=== PATIENT | female | born 1980 | race Caucasian/White ===

== ENCOUNTER 2017-04-16 14:30 | Emergency (ER) | payer OTHER ==
[~2017-04-16] VITALS: Ht 170.2 cm; Wt 73.0 kg
[~2017-04-16 14:30] MED LIST: BACL1TAB PO; CYPR4TAB31 PO; MAGN1TAB19 PO; ONDA4TAB65 PO; RIBO1TAB PO; TIZA1CAP2 PO
[2017-04-16 14:38] VITALS: TEMP 37.1; Ht 170.2 cm; Wt 73.0 kg
[2017-04-16] MEDS ORDERED: SODIUM CHLORIDE 0.9% 1000ML 1,000 ML IV STA (15:23)
[2017-04-16] MEDS ORDERED: PROCHLORPERAZINE 5 MG/ML 2 ML VIAL IV STA (15:23)
[2017-04-16] MEDS ORDERED: DiphenhydrAMINE HCL 50 MG/ML VIAL IV STA (15:23)
[2017-04-16] MEDS ORDERED: DEXAMETHASONE SOD INJ 10 MG/ML VIAL IV ONE (15:30)
[2017-04-16] MEDS ORDERED: PROCHLORPERAZINE INJ 10 MG in SYRINGE 8 ML IV SCH (15:40)
[2017-04-16] MEDS ORDERED: OXYC-57 PO (15:57)
[2017-04-16] MEDS ORDERED: ESOM20CA PO (15:57)
[2017-04-16] MEDS ORDERED: BCPILLS PO (15:57)
--- NOTE | 2017-04-16 16:08 | EMERGENCY ROOM VISIT NOTE ---
History First contact with patient: 14:47 Chief Complaint: HEADACHE Stated Complaint: HEADACHE History of Present Illness The patient is a 36 year old female with reported 20 yr hx of recurrent BURNETT's attributed to migraine, with previous extensive Neurological workup by multiple Neurologists who presents to the Emergency Room with complaints of BURNETT x 2-3 days. Patient has reportedly tried and failed treatment with multiple BURNETT and migraine medications and is currently on Oxycodone prescribed by Pain Clinic in [facility] Dr. Tubbs. She also reports N/V, facial swelling. and chronic chest discomfort for which she has had previous negative EKG's. She denies any numbness, weakness, or tingling, Review of Systems Pt denies, fevers, shortness of breath, nausea, vomiting, diarrhea, pain with urination, and melena. Refer to HPI for rest of ROS Past Medical/Surgical History Medical Problems: (1) Migraine Family History FHx: cardiovascular disease Social History Smoking Status: Never Smoker Alcohol Use: none Drug Use: none Marital Status: Housing Status: lives with family Occupation Status: employed Current/Historical Medications Scheduled Control Pills ( Control Pills), 1 TAB PO DAILY Esomeprazole Magnesium (Nexium), 20 MG PO DAILY Magnesium Oxide (Mg Supplement (Magnesium Oxide), 400 MG PO BID Riboflavin (B-2), 400 MG PO QAM Scheduled PRN Oxycodone/Acetaminophen 5MG/325MG (Percocet 5MG/325MG), 1 TABLET PO Q6H PRN for Pain Physical Exam Vital Signs Date Time Temp Pulse Resp B/P (MAP) Pulse Ox O2 Delivery O2 Flow Rate FiO2 04/16/17 17:25 66 18 125/77 94 04/16/17 16:05 87 18 118/82 97 Room Air 04/16/17 14:38 37.1 76 18 130/92 99 Room Air Physical Exam GENERAL: alert, no distress, non-toxic EYE EXAM: normal conjunctiva, PERRL and EOM's grossly intact OROPHARYNX: no exudate, no erythema, lips, buccal mucosa, and tongue normal and mucous membranes are moist NECK: supple, no nuchal rigidity, no adenopathy, non-tender LUNGS: Clear to auscultation. Normal chest wall mechanics HEART: no murmurs, S1 normal and S2 normal ABDOMEN: abdomen soft, non-tender, normo-active bowel sounds, no masses, no rebound or guarding. UPPER EXTREMITIES: upper extremities are grossly normal. LOWER EXTREMITIES: No pitting edema. NEURO EXAM: Normal sensorium, cranial nerves II-XII intact Medical Decision & Procedures Medications Administered Medications (Trade) Dose Ordered Sig/Mae Route Start Time Stop Time Status Last Admin Dose Admin Sodium Chloride 1,000 ml @ 999 mls/hr Q1H1M STAT IV 04/16/17 15:23 04/16/17 16:23 DC 04/16/17 16:01 999 MLS/HR Diphenhydramine HCl (Benadryl Inj) 50 mg NOW STAT IV 04/16/17 15:23 04/16/17 15:29 DC 04/16/17 16:03 50 MG Prochlorperazine Edisylate 10 mg/ Syringe 10 ml @ 5 mls/min TODAY@1540 IV 04/16/17 15:40 04/16/17 16:00 DC 04/16/17 16:01 5 MLS/MIN Medical Decision 36 yo F with Hx of migraines presented with intractable BURNETT despite home treatment with oxycodone. After consulting PDMP, it was determined patient was a frequent user of opiate for multiple facilities. Based on this information, it was decided that she should not receive opiates at this encounter. Patient has had extensive workup in the past , multiple neurology specialists encounters and failed outpatient treatment for BURNETT's prior to being placed on oxycodone. In the ED, vitals were stable. Neurological exam was unremarkable. She was given IV Compazine, IV Decadron, IV NS bolus, 1 L, and IV Benadryl. Prior to discharge, it was discussed with patient that she would not be receiving opiate medication during this encounter. Patient showed understanding and was comfortable with discharge without outpatient f/u with Neurology and PCP for ongoing care. Regarding Chest discomfort, her symptoms appear chronic and non-cardiac related based on previous testing. Impression Primary Impression: Headache Additional Impression: Hx of migraines Departure Information Dispostion Home / Self-Care Condition GOOD Referrals Alton Garcia D.O. (PCP) Patient Instructions My [facility] Resident Tracking Resident Involvement: Resident Care Provided Care Provided: Adult ED Problem Qualifiers
--- NOTE | 2017-04-16 17:18 | EMERGENCY ROOM VISIT NOTE ---
History Report prepared by Matildaibkeenan: Holger Acuna Under the Supervision of: Dr. Terrell Aponte D.O. First contact with patient: 14:47 Chief Complaint: HEADACHE Stated Complaint: HEADACHE History of Present Illness The patient is a 36 year old female who presents to the Emergency Room by EMS with complaints of intermittent headaches beginning two days ago. She has a history of migraines and states that her current headache does not feel like a typical migraine. She states that she has been getting migraines for 20 years. The patient has been worked up by neurologists for her migraines. She has taken multiple different medications for her migraines but states that none of them have helped. She states that she is currently taking Oxycodone which is prescribed by the pain clinic. The patient states that her headache resolved yesterday and returned again today. She rates her current pain as a 10/10 in severity. The patient also complains of intermittent chest pain, nausea, and vomiting. She is currently being treated with Cipro for suspected UTI. She notes that she has had some blurred vision, but states that this is chronic. Source of History: patient Onset: two days ago Position: head Symptom Intensity: 10/10 Timing: intermittent Associated Symptoms: + chest pain (intermittent), + nausea, + vomiting Review of Systems See HPI for pertinent positives & negatives. A total of 10 systems reviewed and were otherwise negative. Past Medical & Surgical Medical Problems: (1) Migraine Family History FHx: cardiovascular disease Social History Smoking Status: Never Smoker Alcohol Use: none Drug Use: none Marital Status: Housing Status: lives with family Occupation Status: employed Current/Historical Medications Scheduled Control Pills ( Control Pills), 1 TAB PO DAILY Esomeprazole Magnesium (Nexium), 20 MG PO DAILY Magnesium Oxide (Mg Supplement (Magnesium Oxide), 400 MG PO BID Riboflavin (B-2), 400 MG PO QAM Scheduled PRN Oxycodone/Acetaminophen 5MG/325MG (Percocet 5MG/325MG), 1 TABLET PO Q6H PRN for Pain Allergies Coded Allergies: Ketorolac Tromethamine (Verified Allergy, Intermediate, MUSCLE SPASMS, ) Penicillins (Verified Allergy, Intermediate, ABDOMINAL PAIN, 04/16/17) Amoxicillin (Verified Allergy, Unknown, ., 04/16/17) Physical Exam Vital Signs Date Time Temp Pulse Resp B/P (MAP) Pulse Ox O2 Delivery O2 Flow Rate FiO2 04/16/17 16:05 87 18 118/82 97 Room Air 04/16/17 14:38 37.1 76 18 130/92 99 Room Air Physical Exam CONSTITUTIONAL/VITAL SIGNS: Reviewed / noted above. GENERAL: Non-toxic in appearance. INTEGUMENTARY: Warm, dry, and [place]. HEAD: Normocephalic. EYES: without scleral icterus or trauma. ENT/OROPHARYNX: clear and moist. LYMPHADENOPATHY/NECK: Is supple without lymphadenopathy or meningismus. RESPIRATORY: Lungs clear and equal. CARDIOVASCULAR: Regular rate and rhythm. GI/ABDOMEN: Soft and nontender. No organomegaly or pulsatile mass. No rebound or guarding. Normal bowel sounds. EXTREMITIES: Warm and well perfused. BACK: No CVA tenderness. NEUROLOGICAL: Intact without focal deficits. PSYCHIATRIC: normal affect. MUSCULOSKELETAL: Normally developed with good muscle tone. Medical Decision & Procedures Medications Administered Medications (Trade) Dose Ordered Sig/Mae Route Start Time Stop Time Status Last Admin Dose Admin Sodium Chloride 1,000 ml @ 999 mls/hr Q1H1M STAT IV 04/16/17 15:23 04/16/17 16:23 DC 04/16/17 16:01 999 MLS/HR Diphenhydramine HCl (Benadryl Inj) 50 mg NOW STAT IV 04/16/17 15:23 04/16/17 15:29 DC 04/16/17 16:03 50 MG Prochlorperazine Edisylate 10 mg/ Syringe 10 ml @ 5 mls/min TODAY@1540 IV 04/16/17 15:40 04/16/17 16:00 DC 04/16/17 16:01 5 MLS/MIN ED Course 1455: Previous medical records were reviewed. The patient was evaluated in room A11B. A complete history and physical examination was performed. 1523: Ordered Benadryl Inj 50 mg IV, Compazine Inj 10 mg IV, Sodium Chloride 1000 ml @ 999 mls/hr IV. 1530: Ordered Decadron Inj 10 mg IV. 1540: Ordered Prochlorperazine Edisylate 10 mg/Syringe 10 mL @ 5 mL/min IV. 1705: On reevaluation, the patient is resting. I discussed the results and findings with the patient. She verbalized agreement of the treatment plan. She was discharged home. Medical Decision Differential includes: Acute intracranial bleed, trauma, meningitis, encephalitis, increased intracranial pressure, mass or mass effect, facial or dental infection, temporal arteritis, CVA, TIA, acute hypertensive emergency, sinusitis, carbon monoxide exposure. This is a 36-year-old female who presents to the ED with a chief complaint of a headache, weakness and fatigue. The patient states that she has noticed some swelling in her bilateral face. Her PCP feels that she has lupus because she has developed a rash on her face. She is being referred to a specialist for this. The patient had history of a dental infection and recently has been on antibiotics. She states that her headache would come and go. Recently it is a little worse. Her vital signs are normal. Her physical exam did not reveal any asymmetry to the face. There is no evidence of dental infection. There is no lymphadenopathy. The lungs are clear. The patient was treated with IV fluids, IV Compazine, IV Benadryl and IV Decadron. She is felt to be stable for discharge and outpatient follow-up. Her symptoms did improve with this. She is going to follow-up with her PCP. Medication Reconcilliation Current Medication List: was personally reviewed by me Blood Pressure Screening Patient's blood pressure: Elevated blood pressure Blood pressure disposition: Elevated BP felt to be situational Impression Primary Impression: Headache Scribe Attestation The scribe's documentation has been prepared under my direction and personally reviewed by me in its entirety. I confirm that the note above accurately reflects all work, treatment, procedures, and medical decision making performed by me. Departure Information Dispostion Home / Self-Care Referrals Alton Garcia D.O. (PCP) Forms HOME CARE DOCUMENTATION FORM, IMPORTANT VISIT INFORMATION Patient Instructions Headache Migraine Triggers Prevent, My [facility] Additional Instructions Please F/u with PCP [email or web address] wks [facility]
[2017-04-16 17:25] VITALS: BP 125/77; PULSE 66; O2SAT 94
== END 2017-04-16 17:27 | disposition home or self-care (01) ==
LOC: EDBD 14:30 → C.EDA 14:31
DX: R51 Headache (principal); Z82.49 Family history of ischemic heart disease and other diseases of the circulatory system; Z79.3 Long term (current) use of hormonal contraceptives; Z79.899 Other long term (current) drug therapy

== ENCOUNTER 2017-10-28 17:49 | Emergency (ER) | payer OTHER ==
[~2017-10-28] VITALS: Ht 170.2 cm; Wt 83.0 kg
[~2017-10-28 17:49] MED LIST changes: -BACL1TAB PO; +BCPILLS PO; -CYPR4TAB31 PO; +ESOM20CA PO; -MAGN1TAB19 PO; -ONDA4TAB65 PO; +OXYC-57 PO; -RIBO1TAB PO; -TIZA1CAP2 PO
[2017-10-28 17:59] VITALS: TEMP 36.8; Ht 170.2 cm; Wt 83.0 kg
--- NOTE | 2017-10-28 18:52 | EMERGENCY ROOM VISIT NOTE ---
History Report prepared by Vahe: Jose Miguel Seaman Under the Supervision of: Dr. Emery Harris M.D. First contact with patient: 18:44 Chief Complaint: CARDIAC ASSESSMENT Stated Complaint: CHEST PAIN, SOB, PAIN LT ARM, NAUSEA, LIGHTHEADED History of Present Illness The patient is a 37 year old white female with a past medical history of migraines, HTN, hypothyroidism, hypoglycemia, cholecystectomy who presents to the ED with a cc of intermittent chest pain beginning two weeks ago. Exertion increases the patient's discomfort. Positive recently elevated blood pressure and cholesterol, rapid weight gain of 35 pounds over the past six months, arm pain beginning 4 days ago, constant nausea, and a strong family history of cardiac disease. Negative drug use, alcohol use, new stressors, changes in lifestyle, swelling in her legs, recent travel, history of smoking, using control, coughs, fevers, chills, history of blood clots in the lungs or legs. Pt notes her MP is due in the next few days. Her mother of heart disease and kidney disease, and she had an PA at 57. Source of History: patient Onset: two weeks ago Position: chest Timing: intermittent Modifying Factors (Worsening): exertion Associated Symptoms: + nausea, No fevers, No chills, No cough Note: Associated symptoms: rapid weight gain, arm pain Denies: using control, swelling in her legs, new stressors, drug use, alcohol use Review of Systems See HPI for pertinent positives and negatives. A total of ten systems were reviewed and were otherwise negative. Past Medical & Surgical Medical Problems: (1) HTN (hypertension) (2) Migraine (3) Skin problem (4) Stomach problems Surgical Problems: (1) H/O tubal ligation (2) History of appendectomy (3) History of cholecystectomy (4) History of tonsillectomy Family History Cancer FHx: cardiovascular disease FHx: gallbladder disease Hypertension Kidney disease Kidney stones Lung disease Social History Smoking Status: Former Smoker Alcohol Use: none Drug Use: none Marital Status: Housing Status: lives with family Occupation Status: employed Current/Historical Medications Scheduled Doxycycline Hyclate (Doxycycline Hyclate), 100 MG PO DAILY Esomeprazole Magnesium (Nexium), 20 MG PO DAILY Levothyroxine Sodium (Levothyroxine Sodium), 125 MCG PO DAILY Linaclotide (Linzess), 145 MCG PO DAILY Magnesium Oxide (Mg Supplement (Magnesium Oxide), 400 MG PO BID Riboflavin (B-2), 200 MG PO QAM Scheduled PRN Fluticasone Propionate (Nasal) (Flonase Allergy Relief), 2 SPRAYS MENDY DAILY PRN for Allergy Symptoms Oxycodone Hcl (Oxycodone Hcl), 10 MG PO Q4-6HRS PRN for Pain Allergies Coded Allergies: Ketorolac Tromethamine (Verified Allergy, Intermediate, MUSCLE SPASMS, ) Penicillins (Verified Allergy, Intermediate, ABDOMINAL PAIN, 04/16/17) Amoxicillin (Verified Allergy, Unknown, ., 04/16/17) Physical Exam Vital Signs Date Time Temp Pulse Resp B/P (MAP) Pulse Ox O2 Delivery O2 Flow Rate FiO2 10/28/17 21:55 74 13 109/75 100 10/28/17 21:32 72 13 109/75 100 Room Air 10/28/17 20:00 75 22 99 10/28/17 19:45 85 18 100 10/28/17 19:39 78 10/28/17 19:32 122/73 10/28/17 19:30 99 Room Air 10/28/17 19:30 Room Air 10/28/17 17:59 36.8 96 20 146/95 97 Room Air Physical Exam GENERAL: Awake, alert, well-appearing, NAD HENT: Normocephalic, atraumatic. EYES: Normal conjunctiva. Sclera non-icteric. NECK: Supple. No nuchal rigidity. FROM. RESPIRATORY: CTAB, no rhonchi, wheezing, crackles CARDIAC: RRR, no MRG ABDOMEN: Soft, NTND, BS+ MSK: No chest wall TTP, no LE edema NEURO: GCS 15, CN 2-12 intact, moves all 4s on command SKIN: No rash or jaundice noted. Medical Decision & Procedures ER Provider Diagnostic Interpretation: X-ray: Per my interpretation, radiologist review. SINGLE VIEW CHEST CLINICAL HISTORY: Atypical chest pain. FINDINGS: An AP, portable, upright chest radiograph is compared to study dated 03/15/2014. The examination is degraded by portable technique and patient rotation. The cardiomediastinal silhouette is unremarkable. The lungs and pleural spaces are clear. No pneumothorax is seen. The bony thorax is grossly intact. IMPRESSION: No active disease in the chest. Electronically signed by: Clyde Chiang M.D. 10/28/2017 7:11 PM Dictated Date/Time: 10/28/2017 7:11 PM Laboratory Results 10/28/17 19:45 Red Blood Count 4.93, Mean Corpuscular Volume 89.9, Mean Corpuscular Hemoglobin 32.0, Mean Corpuscular Hemoglobin Concent 35.7, Mean Platelet Volume 9.7, Neutrophils (%) (Auto) 49.1, Lymphocytes (%) (Auto) 41.1, Monocytes (%) (Auto) 7.4, Eosinophils (%) (Auto) 1.8, Basophils (%) (Auto) 0.4, Neutrophils # (Auto) 4.92, Lymphocytes # (Auto) 4.12, Monocytes # (Auto) 0.74, Eosinophils # (Auto) 0.18, Basophils # (Auto) 0.04 10/28/17 19:45 Test 10/28/17 19:45 White Blood Count 10.02 K/uL (4.8-10.8) Red Blood Count 4.93 M/uL (4.2-5.4) Hemoglobin 15.8 g/dL (12.0-16.0) Hematocrit 44.3 % (37-47) Mean Corpuscular Volume 89.9 fL (80-100) Mean Corpuscular Hemoglobin 32.0 pg (25-34) Mean Corpuscular Hemoglobin Concent 35.7 g/dl (32-36) Platelet Count 301 K/uL (130-400) Mean Platelet Volume 9.7 fL (7.4-10.4) Neutrophils (%) (Auto) 49.1 % Lymphocytes (%) (Auto) 41.1 % Monocytes (%) (Auto) 7.4 % Eosinophils (%) (Auto) 1.8 % Basophils (%) (Auto) 0.4 % Neutrophils # (Auto) 4.92 K/uL (1.4-6.5) Lymphocytes # (Auto) 4.12 K/uL (1.2-3.4) Monocytes # (Auto) 0.74 K/uL (0.11-0.59) Eosinophils # (Auto) 0.18 K/uL (0-0.5) Basophils # (Auto) 0.04 K/uL (0-0.2) RDW Standard Deviation 45.2 fL (36.4-46.3) RDW Coefficient of Variation 13.8 % (11.5-14.5) Immature Granulocyte % (Auto) 0.2 % Immature Granulocyte # (Auto) 0.02 K/uL (0.00-0.02) Anion Gap 5.0 mmol/L (3-11) Est Creatinine Clear Calc Drug Dose 99.2 ml/min Estimated GFR () 100.0 Estimated GFR (Non- 86.3 BUN/Creatinine Ratio 25.9 (10-20) Calcium Level 9.1 mg/dl (8.5-10.1) Troponin I < 0.015 ng/ml (0-0.045) Human Chorionic Gonadotropin, Qual NEG (NEG) Laboratory results reviewed by me Medications Administered Medications (Trade) Dose Ordered Sig/Mae Route Start Time Stop Time Status Last Admin Dose Admin Acetaminophen (Tylenol Tab) 1,000 mg NOW STAT PO 10/28/17 19:06 10/28/17 19:08 DC 10/28/17 20:24 1,000 MG Ibuprofen (Advil Tab) 400 mg NOW STAT PO 10/28/17 19:06 10/28/17 19:08 DC 10/28/17 20:23 400 MG ECG Indication: chest pain Rate (beats per minute): 83 Rhythm: normal sinus Findings: other (Normal intervals, normal axis, no other STS or TWI) Change: Patient's electrocardiogram interpreted by me. ED Course 1899: The patient was evaluated in room B03B. A complete history and physical exam was performed. 2130: I performed a Bedside Echocardiogram. Discussed the results, today's findings, and discharge instructions: she verbalized understanding and agreement. The patient is ready for discharge. Medical Decision The patient is a 37 year old white female with a past medical history of migraines, HTN, hypothyroidism, hypoglycemia, cholecystectomy who presents to the ED with a cc of intermittent chest pain beginning two weeks ago. Differential diagnosis: Etiologies such as cardiac ischemia, aortic dissection, pulmonary embolism, pneumonia, pneumothorax, musculoskeletal, infections, pericarditis, myocarditis , esophageal rupture, gastrointestinal, as well as others were entertained. Patient was seen and evaluated the bedside. Patient has complained of some exertional dyspnea and ongoing for approximately 2 weeks. Patient has complained of some mild discomfort in her chest. Patient's story is mildly concerning. Patient's mother did have an PA at the age of 60. Patient does have borderline hyperlipidemia and question hypertension. Nonsmoker does not use any OCPs. Patient is PERC negative. Patient has a nonischemic EKG without any overt abnormalities. Patient has a heart score less than 4 less likely to be ACS. I did perform a bedside cardiac ultrasound. There was no evidence of a large pericardial effusion. The patient appeared to have good concentric squeeze and a good EF as the mitral valve was essentially striking the septum. No evidence of RV deviation into LV concerning for increased R sided pressures. Patient was informed of all findings. Patient was told that she should follow -up with her primary care physician as well as given some warning signs for which to return with regard to things like PE or DVT. Patient was agreeable to plan of care. Patient was given strict follow-up, discharge, and return precautions. All questions were answered. Patient was deemed suitable for outpatient follow-up at this time. Patient agreed with the plan of care and was safely discharged home. The chart was completed utilizing [employer] Speech voice recognition software. Grammatical errors, random word insertions, pronoun errors, and incomplete sentences are an occasional consequence of this system due to software limitations, ambient noise, and hardware issues. Any formal questions or concerns about the content, text, or information contained within the body of this dictation should be directly addressed to the physician for clarification. Medication Reconcilliation Current Medication List: was personally reviewed by me Blood Pressure Screening Patient's blood pressure: Normal blood pressure Blood pressure disposition: Did not require urgent referral Impression Primary Impression: SOB (shortness of breath) on exertion Additional Impression: Chest pain Scribe Attestation The scribe's documentation has been prepared under my direction and personally reviewed by me in its entirety. I confirm that the note above accurately reflects all work, treatment, procedures, and medical decision making performed by me. Departure Information Dispostion Home / Self-Care Referrals Alton Garcia D.O. (PCP) Forms IMPORTANT VISIT INFORMATION Patient Instructions ED Dyspnea Shortness of Breath, My [facility] Additional Instructions Please return to the emergency department if you have worsening or recurrent symptoms not amenable to at-home treatment. Please call for a follow-up appointment with her primary care physician. Please take your medications as prescribed. If you have other concerns and/or complaints please feel free to also call your primary care physician's office or return the ED for further evaluation, management, and treatment. You may take 600 mg Ibuprofen every 6 hours as needed for pain with food for no more than 2 consecutive days. You may take tylenol 1000 mg every 6 hours as needed for pain. You may take motrin and tylenol separately or at the same time. Take your medications as prescribed. Please follow-up with your primary care physician for further evaluation treatment. You have been examined and treated today on an emergency basis only. This is not a substitute for, or an effort to provide, complete comprehensive medical care. It is impossible to recognize and treat all injuries or illnesses in a single emergency department visit. It is therefore important that you follow up closely with [facility], your PCP, and/or your specialist(s). Call as soon as possible for an appointment. Thank you for your time and consideration. I look forward to speaking with you again soon. Please don't hesitate to call us if you have any questions. Problem Qualifiers Additional Impression: Chest pain Chest pain type: unspecified Qualified Codes: R07.9 - Chest pain, unspecified
[2017-10-28] MEDS ORDERED: MAGN1TAB19 PO (18:55)
[2017-10-28] MEDS ORDERED: RIBO1TAB PO (18:55)
[2017-10-28] MEDS ORDERED: IBUPROFEN 200 MG TAB PO STA (19:06)
[2017-10-28] MEDS ORDERED: ACETAMINOPHEN 500 MG TAB PO STA (19:06)
--- NOTE | 2017-10-28 19:13 | DIAGNOSTIC IMAGING REPORT ---
SINGLE VIEW CHEST CLINICAL HISTORY: Atypical chest pain. FINDINGS: An AP, portable, upright chest radiograph is compared to study dated 03/15/2014. The examination is degraded by portable technique and patient rotation. The cardiomediastinal silhouette is unremarkable. The lungs and pleural spaces are clear. No pneumothorax is seen. The bony thorax is grossly intact. IMPRESSION: No active disease in the chest. Electronically signed by: Clyde Chiang M.D. 10/28/2017 7:11 PM Dictated Date/Time: 10/28/2017 7:11 PM
[2017-10-28] MEDS ORDERED: FLUT0.15 NAE (19:21)
[2017-10-28] MEDS ORDERED: LEVO125T5 PO (19:21)
[2017-10-28] MEDS ORDERED: DOXY100T PO (19:26)
[2017-10-28] MEDS ORDERED: OXYC-164 PO (19:26)
[2017-10-28] MEDS ORDERED: LINA1CAP PO (19:26)
[2017-10-28 19:30] VITALS: O2SAT 99
[2017-10-28 20:04] LABS: BASO % 0.4 %; BASO ABS # 0.04 K/uL (0-0.2); EOS % 1.8 %; EOS ABS # 0.18 K/uL (0-0.5); HEMATOCRIT 44.3 % (37-47); HEMOGLOBIN 15.8 g/dL (12.0-16.0); IG# 0.02 K/uL (0.00-0.02); LYMPH % 41.1 %; LYMPH ABS # 4.12 K/uL (1.2-3.4); MEAN CELL VOLUME 89.9 fL (80-100); MEAN CORPUSCULAR HGB CONC 35.7 g/dl (32-36); MEAN PLATELET VOLUME 9.7 fL (7.4-10.4); MONO % 7.4 %; MONO ABS # 0.74 K/uL (0.11-0.59); NEUT % 49.1 %; NEUT ABS # 4.92 K/uL (1.4-6.5); PLATELET COUNT 301 K/uL (130-400); RED CELL DISTRIBUTION WIDTH CV 13.8 % (11.5-14.5); RED CELL DISTRIBUTION WIDTH SD 45.2 fL (36.4-46.3); WHITE BLOOD COUNT 10.02 K/uL (4.8-10.8)
[2017-10-28 20:26] LABS: BLOOD UREA NITROGEN 22 mg/dl (7-18); CALCIUM 9.1 mg/dl (8.5-10.1); CARBON DIOXIDE 27 mmol/L (21-32); CREATININE 0.86 mg/dl (0.60-1.20); GLUCOSE 89 mg/dl (70-99); POTASSIUM 4.1 mmol/L (3.5-5.1); SODIUM 135 mmol/L (136-145)
[2017-10-28 21:55] VITALS: BP 109/75; PULSE 74; O2SAT 100
== END 2017-10-28 21:55 | disposition home or self-care (01) ==
LOC: C.EDB 17:50
DX: R06.02 Shortness of breath (principal); R07.9 Chest pain, unspecified; I10 Essential (primary) hypertension; E03.9 Hypothyroidism, unspecified; Z87.891 Personal history of nicotine dependence; Z82.49 Family history of ischemic heart disease and other diseases of the circulatory system; Z83.79 Family history of other diseases of the digestive system; Z84.1 Family history of disorders of kidney and ureter; Z80.9 Family history of malignant neoplasm, unspecified